=== PATIENT | female | born 1970 | race African-American/Black ===

== ENCOUNTER 2021-02-25 22:04 | Emergency (ER) | payer BC, OTHER, MEDICAID ==
[~2021-02-25] VITALS: Ht 180.3 cm; Wt 109.0 kg
[2021-02-25] MEDS ORDERED: EPINEPHRINE 1:1000 1 MG/ML AMP IM ONE (22:45)
[2021-02-25] MEDS ORDERED: FAMOTIDINE 20MG/2ML VIAL IV ONE (22:45)
[2021-02-25] MEDS ORDERED: DIPHENHYDRAMINE 50MG/ML VIAL IV ONE (22:45)
[2021-02-25 23:10] LABS: BASOPHILS % 0.7 % (0.0-2.0); EOSINOPHILS % 0.3 % (0.0-5.0); HEMATOCRIT. 41.3 % (36.0-48.0); HEMOGLOBIN. 13.4 g/dL (12.0-16.0); LYMPHOCYTES % 24.2 % (20.0-50.0); MEAN CORPUSCULAR HEMOGLOBIN 27.6 pg (28.0-32.0); MEAN CORPUSCULAR VOLUME 84.9 fL (81.0-99.0); MEAN PLATELET VOLUME 7.3 fl (7.4-10.4); MONOCYTES % 8.8 % (2.0-8.0); PLATELET 199 x1000/uL (130-400); RED BLOOD CELL COUNT 4.87 mill/uL (4.2-5.4); RED CELL DISTRIBUTION WIDTH 15.9 % (11.6-14.6)
[2021-02-25 23:14] LABS: CHLORIDE 109 mEq/L (98-107)
[2021-02-25] MEDS ORDERED: ONDANSETRON HCL 4MG/2ML INJ IV ONE (23:30)
[2021-02-26 00:15] VITALS: BP 106/60
[2021-02-26] MEDS ORDERED: EPIN0.3P3 IM (00:55)
[2021-02-26] MEDS ORDERED: FAMO-135 MT (00:55)
[2021-02-26] MEDS ORDERED: DIPH25TA62 MT (00:55)
[2021-02-26] MEDS ORDERED: DIPHENHYDRAMINE 50MG/ML VIAL IV ONE (01:00)
== END 2021-02-26 02:31 | disposition home or self-care (01) ==
LOC: ER 22:04
DX: T78.40XA Allergy, unspecified, initial encounter (principal); I10 Essential (primary) hypertension; E11.9 Type 2 diabetes mellitus without complications; Z98.890 Other specified postprocedural states; Z79.899 Other long term (current) drug therapy; X58.XXXA Exposure to other specified factors, initial encounter
CPT/HCPCS: 36415; 80053; 85025; 93005; 96372; 96374; 96375; 96376; 99284; J1200; J2405; J3490